=== PATIENT | male | born 1995 | race Caucasian/White ===

== ENCOUNTER 2022-09-21 09:11 | Emergency (ER) | payer BC, SELFPAY ==
[2022-09-21 09:11] VITALS: BP 152/82; PULSE 98; RESP 14; TEMP 36.4; O2SAT 100; BMI 23.5
--- NOTE | 2022-09-21 09:54 | CT_ITS ---
INDICATION: dissection study, back pain hx of Marfan''s EXAMINATION: CTA CHEST, ABDOMEN AND PELVIS WITH CONTRAST - TECHNIQUE: A CTA of the chest, abdomen, and pelvis is obtained with sagittal and coronal reconstructed MIP views. Three-dimensional surface rendered sequence of the thoracic and abdominal aorta was obtained. A radiation dose optimization technique was used for this scan. mL of Isovue-[id number]. Oral contrast: None. COMPARISON: None. FINDINGS: CT CHEST: THORACIC AORTA: No atheromatous disease, no aneurysmal changes or dissection. The ascending thoracic aorta measures 3.1 x 3.1 cm and the descending thoracic aorta measures 2.1 x 2.0 cm. ABDOMINAL AORTA: No aneurysm or dissection. No significant atheromatous disease. The iliac arteries are unremarkable. LUNGS: The lungs are well-expanded without acute or chronic changes. No effusions or pneumothorax. MEDIASTINUM: The thyroid gland is normal. No mediastinal or hilar adenopathy. HEART: Heart is normal size. No pericardial effusion. No coronary artery calcifications. CT ABDOMEN AND PELVIS: LIVER: The liver enhances homogeneously. Within the dome of the liver there are two well-circumscribed round low attenuation foci measuring up to 1.3 cm within the left hepatic lobe and 0.9 cm within the right hepatic lobe. GALLBLADDER: The common bile duct is normal. Normal gallbladder. SPLEEN: Normal. PANCREAS: No masses or inflammation. ADRENAL GLANDS: Normal. KIDNEYS AND URETERS: The kidneys both enhance appropriately. There are normal size and shape. No hydronephrosis or nephrolithiasis. No renal masses or cysts. STOMACH: Normal. SMALL BOWEL: No abnormal distention of the small bowel. MESENTERY: No mesenteric inflammation. No ascites. COLON: There are diverticula arising from the sigmoid colon. The colon otherwise is normal. There is a large fatty ileocecal valve. APPENDIX: The appendix is visualized and normal. IVC: Normal. RETROPERITONEUM: No retroperitoneal lymphadenopathy. PELVIC STRUCTURES: Normal bladder. SOFT TISSUES ABDOMEN: The anterior abdominal wall is normal. SOFT TISSUE CHEST: The extrathoracic soft tissues are normal. BONES: No fractures or significant degenerative disease. CT/CTA Chst, Abd, Pel W and/or WO IMPRESSION: No acute cardiopulmonary or intra-abdominal process. Electronically Signed: Rylee Cowart MD at 10:57 EST ,
--- NOTE | 2022-09-21 09:54 | CT_ITS ---
STUDY: CT LUMBAR SPINE WITHOUT CONTRAST REASON FOR EXAM: Male, 27 years old. Pain, midline, no trauma RADIATION DOSAGE (If Supplied By Facility): CTDIvol = ( 13.33 ) mGy, DLP = ( 1442.25 ) mGycm TECHNIQUE: The patient was scanned in a multi detector CT scanner. High resolution transaxial imaging was performed. Images were obtained from T12 to L1. Sagittal and coronal images were reconstructed. Individualized dose optimization techniques were used for this CT. COMPARISON: Radiograph dated 12/09/2012 FINDINGS: Normal lumbar lordosis. There is a mild dextroscoliosis of the lumbar spine. Normal vertebrae of the lumbar spine. L1-2: Normal endplates. Normal disc height and morphology. Normal bilateral facet joints. Normal central canal and bilateral lateral recesses. Normal bilateral intervertebral neural foramina. L2-3: Normal endplates. Normal disc height and morphology. Normal bilateral facet joints. Normal central canal and bilateral lateral recesses. Normal bilateral intervertebral neural foramina. L3-4: Normal endplates. Normal disc height and morphology. Normal bilateral facet joints. Normal central canal and bilateral lateral recesses. Normal bilateral intervertebral neural foramina. L4-5: Normal endplates. Normal disc height and morphology. Normal bilateral facet joints. Normal central canal and bilateral lateral recesses. Normal bilateral intervertebral neural foramina. L5-S1: Normal endplates. Normal disc height and morphology. Normal bilateral facet joints. Normal central canal and bilateral lateral recesses. Normal bilateral intervertebral neural foramina. There is a separate dedicated CT report of the abdomen and pelvis. CT/Spine Lumbar without Contrast IMPRESSION: Dextroscoliosis. Electronically Signed: Rylee Cowart MD at 11:01 EST ,
[2022-09-21 10:28] LABS: Absolute Lymphocyte Count 2.96 X10^3/uL (0.83-4.51); Absolute Neutrophil Count 3.8 X10^3/uL (2.0-7.7); Basophil% 1.3 % (0-1); Eosinophil# 0.45 X10^3/uL; Eosinophils% 5.7 % (0-5); Hematocrit 44.2 % (40-54); Hemoglobin 14.9 g/dL (13.0-16.5); Lymphocyte # 2.96 X10^3/ul (0.83-4.51); Lymphocyte % 37.6 % (19-41); Mean Corp Hgb Conc 33.7 g/dL (32-36); Mean Corpuscular Hgb 30.1 pg (27.0-32.0); Mean Corpuscular Volume 89.3 fL (80-94); Mean Platelet Vol. 9.2 fl (6.2-12.0); Monocyte% 7.6 % (0-10); NRBC Flagged by Analyzer 0 % (0-5); Neutrophil # 3.75 X10^3/uL (2.7-7.7); Neutrophil % 47.5 % (47-70); Platelet Count 278 K/mm3 (150-450); RBC Distribution Width CV 11.3 % (11.6-14.6); RBC Distribution Width SD 36.4 fl (35.1-43.9); Red Blood Count 4.95 M/mm3 (4.6-6.2); White Blood Count 7.9 K/mm3 (4.4-11.0)
[2022-09-21] MEDS: morphine 8 MG/ML Syringe 6 MG IV (10:40)
[2022-09-21 10:46] LABS: ALB/GLOB Ratio 1.2 RATIO (0.9-2.4); AST(SGOT) 12 U/L (15-37); Alanine Aminotransfer ALT/SGPT 27 U/L (16-61); Albumin, Serum 3.8 g/dL (3.2-5.0); Alkaline Phosphatase 56 U/L (45-117); Anion Gap 5 (5-15); BUN 14 mg/dL (7-18); BUN/Creat Ratio 16.3 RATIO (10-20); Calcium,Total 9.1 mg/dL (8.5-10.1); Chloride 109 mmol/L (98-107); Creatinine, Serum 0.86 mg/dL (0.70-1.30); EST Glomerular Filtration Rate 113 mL/min (>60); Est Glom Filt Rate - Afr Amer 136 mL/min (>60); Estimated Creatinine Clearance 169.48 ml/min; Globulin 3.3 g/dL (2.2-4.2); Glucose 83 mg/dL (74-106); Potassium 3.5 mmol/L (3.5-5.1); Protein, Total 7.1 g/dL (6.4-8.2); Sodium Level 143 mmol/L (136-145)
--- NOTE | 2022-09-21 12:51 | EDS_ITS ---
HPI History of Present Illness Chief Complaint: Back Informant: patient Narrative Narrative: Patient is a 27-year-old male with history of Marfan's syndrome as well as hyperlipidemia and aortic ectasia presenting with worsening back pain. He is progressively worsening back pain over the past 1 and a 1/2 months. Patient states it is shooting and goes down his bilateral legs. It is on both sides of the middle of his back but seems to be worse on the left. Initially started on the right. He states he does get some tingling in his feet. Denies any falls or injuries. Notes he does work third shift and has to do a lot of standing. States the pain is very intense. Denies any bowel or bladder incontinence. Denies any saddle anesthesia. Denies any fever or chills. Initially saw his primary care doctor today he was worried about decreased strength in his legs and sent him to the ER for further evaluation. [facility] Medical History (Updated 09/21/22 @ 12:[address] Lauren Patel DO) Aortic dilatation COVID-19 virus detected (11/13/20) Hyperlipidemia Marfan syndrome Talipes cavus Home Medications losartan 25 mg tablet 25 mg PO DAILY #90 tabs 01/01/21 [Rx Last Taken Unknown] oxycodone-acetaminophen 5 mg-325 mg tablet (Percocet) 1 tab PO Q6H PRN pain 3 days #12 tabs 09/21/22 [Rx Last Taken Unknown] prednisone 20 mg tablet 40 mg PO DAILY #8 tabs 09/21/22 [Rx Last Taken Unknown] Allergy/AdvReac Type Severity Reaction Status Date / Time No Known Allergies Allergy Verified 09/21/22 09:13 Family History Mother Marfan syndrome Asthma Father Glaucoma Sister Marfan syndrome Grandfather , Age 48 Marfan syndrome Sudden cardiac Grandmother Diabetes Surgical History History of eye surgery (~2009) Social History Smoking Status: Former smoker how long ago did patient quit smokin alcohol intake: never substance use type: does not use ROS ROS ED Constitutional Constitutional ED: Denies chills or fever(s) Eyes Eyes: Denies change in vision ENT ENT ED: Denies rhinorrhea Cardiovascular Cardiovascular: Denies chest pain or palpitations Respiratory/Chest Respiratory/Chest: Denies dyspnea or dyspnea on exertion Gastrointestinal Gastrointestinal: Denies abdominal pain, constipation or diarrhea Genitourinary Genitourinary ED: Denies dysuria, hematuria or urinary frequency Musculoskeletal Musculoskeletal: Reports back pain; Denies myalgias Integumentary Denies rash Neurologic Neurologic: Reports paresthesias RLE and LLE and weakness; Denies headache(s) Psychiatric Psychiatric: Denies anxiety or depression Hematologic/Lymphatic Hematologic/Lymphatic: Denies easy bleeding or easy bruising EXAM Physical Exam Const Vital Signs: 09/21/22 09:11 09/21/22 13:08 Temperature 97.5 F L Temperature Source Temporal Pulse Rate 98 84 Respiratory Rate 14 18 Blood Pressure 152/82 H 115/75 Blood Pressure Mean 105 Pulse Ox 100 Oxygen Delivery Method Room Air Positive well nourished and well developed Constitutional Narrative: Uncomfortable appearing, tall General Appearance ED: well developed and NAD HEENT Reports moist mucous membranes Eyes PERRL and EOMs intact bilaterally Neck supple and no JVD Neck Narrative: No meningeal signs Resp normal respiratory effort and clear to auscultation bilaterally Cardio regular rate, regular rhythm and no murmurs GI normal to inspection, nondistended, normoactive bowel sounds and non-tender GI Narrative: No pulsatile mass Back/Spine Back/Spine Narrative: Decreased range of motion of the lumbar spine. Patient has midline tenderness palpation around L4 as well as bilateral sacroiliac joints. Positive bilateral straight leg test. Lumbar Spine / Lower Back: ROM limited Extremity normal to inspection Extremity Narrative: 2+ left pedal pulse, 1+ right pedal pulse Neuro oriented x3 and no sensory deficits noted Neuro Narrative: Sensation intact in the lower extremities. Motor Exam: strength 5/5 throughout Deep Tendon Reflexes: Rt Patellar (L4): 2+ and Lt Patellar (L4): 2+ Deep Tendon Reflexes Back: Rt Patellar (L4): 2+ and Lt Patellar (L4): 2+ Plantar Reflex: Downgoing: bilateral Psych mental status grossly normal Skin no rashes or lesions noted and no wounds MDM MDM MDM Narrative Medical decision making narrative: Patient is evaluated for worsening low back pain. On exam is consistent with sciatica however he does have midline tenderness. His pulses decreased in his right foot he has a history of Marfan's. Differential also includes aortic dissection. Patient's vital signs are significant for mild hypertension upon arrival however that improves with better pain control. CT of the chest abdomen pelvis obtained as well as lumbar spine recons. The patient is extra scoliosis but no other acute process. Lab work largely unremarkable. No signs of dissection or other acute intra-abdominal pathology. Patient does not have any findings consistent with cauda equina syndrome. Post void bladder scan in the ER shows less than 20 cc of urine. Patient is given IV morphine in the ER with improvement of symptoms. He is started on a steroid burst and will be discharged to follow-up with spine. Again I suspect his pain is related to sciatica. He has a normal neurologic exam and I do not appreciate any weakness of his lower extremities. He has normal reflexes and normal Babinski sign. Low suspicion for GBS or transverse myelitis. Patient is given follow-up with spine as well as a short course of pain medication. Patient verbalizes agreement nursing with this plan. He states he has to drive home so is not given any further pain medicine in the ER. Lab Data Labs: Laboratory Results - last 24 hr 09/21/22 09/21/22 10:11 10:11 WBC 7.9 RBC 4.95 Hgb 14.9 Hct 44.2 MCV 89.3 MCH 30.1 MCHC 33.7 RDW Std Deviation 36.4 RDW Coeff of [place] 11.3 L Plt Count 278 MPV 9.2 Immature Gran % (Auto) 0.300 Neut % (Auto) 47.5 Lymph % (Auto) 37.6 [place] % (Auto) 7.6 Eos % (Auto) 5.7 H Baso % (Auto) 1.3 H Absolute Neuts (auto) 3.8 Absolute Lymphs (auto) 2.96 Nucleated RBC % 0 Sodium 143 Potassium 3.5 Chloride 109 H Carbon Dioxide 29.0 Anion Gap 5 BUN 14 Creatinine 0.86 Estim Creat Clear Calc 169.48 Est GFR (MDRD) Af Amer 136 Est GFR (MDRD) Non-Af 113 BUN/Creatinine Ratio 16.3 Glucose 83 Calcium 9.1 Total Bilirubin 0.90 AST 12 L ALT 27 Alkaline Phosphatase 56 Total Protein 7.1 Albumin 3.8 Globulin 3.3 Albumin/Globulin Ratio 1.2 Radiography Diagnostic Testing: Clinical Impression(s) from Imaging Studies Chest/Abdomen/Pelvis CTA 09/21/22 09:54 IMPRESSION: No acute cardiopulmonary or intra-abdominal process. Electronically Signed: Rylee Cowart MD at 10:57 EST , Lumbar Spine CT 09/21/22 09:54 IMPRESSION: Dextroscoliosis. Electronically Signed: Rylee Cowart MD at 11:01 EST , Discharge Plan Triage Chief Complaint: Back ED Provider: Lauren Patel Dx/Rx/DC Orders Clinical Impression: Acute bilateral low back pain with bilateral sciatica, Marfan syndrome Instructions: ED Back Pain (Acute or Chronic), ED Sciatica Prescriptions: New prednisone 20 mg tablet 40 mg PO DAILY Qty: 8 0RF oxycodone-acetaminophen [Percocet] 5-325 mg tablet 1 tab PO Q6H PRN (Reason: pain) 3 Days Qty: 12 0RF No Action losartan 25 mg tablet 25 mg PO DAILY Qty: 90 3RF Stand Alone Forms: ED Work / School Excuse Primary Care Provider: Flavia French Referrals: Flavia French MD [Primary Care Provider] - Momo Lombardi DO [Med Staff - Active Staff] - As soon as possible Activity Restrictions/Additional Instructions: Recommend wear the back brace at work. I suspect you have sciatica. Return if you develop urinary or stool incontinence, the pain becomes more severe or you have difficulty walking. Disposition Disposition: Home, Self Care Discharge Date/Time: 09/21/22 13:15
[2022-09-21] MEDS: predniSONE 20 MG Tablet 60 MG PO (13:07)
[2022-09-21 13:08] VITALS: BP 115/75; PULSE 84; RESP 18
== END 2022-09-21 13:15 | disposition home or self-care (01) ==
PROVIDERS: Emergency Provider Emergency Medicine; PCP Internal Medicine; Visit Provider Emergency Medicine
DX: M54.41 Lumbago with sciatica, right side (principal); M54.42 Lumbago with sciatica, left side; Q87.40 Marfan syndrome, unspecified; E78.5 Hyperlipidemia, unspecified; Z87.891 Personal history of nicotine dependence; I10 Essential (primary) hypertension
CPT/HCPCS: 71275; 72131; 74174; 80053; 85025; 96374; 99285; Q9967; A4216

== ENCOUNTER → 2022-10-06 | Outpatient (CLI) | payer BC, SELFPAY ==
--- NOTE | 2022-10-06 16:45 | MRI_ITS ---
EXAM: MR LUMBAR SPINE WITHOUT INTRAVENOUS CONTRAST CLINICAL INDICATION: SPINAL STENOSIS TECHNIQUE: Multiplanar and multisequence MR images of the lumbar spine without intravenous contrast. This report was created using [employer] report generation technology. COMPARISON: CT 09/21/2022. FINDINGS: VERTEBRAE: Unremarkable. Vertebral body heights are preserved. Normal vertebral bodies and posterior elements. Mild lumbar dextroscoliosis. No spondylolisthesis. There is preservation of the normal lumbar lordosis. SPINAL CORD: Unremarkable. Normal position and signal intensity of the conus medullaris. SOFT TISSUES: Unremarkable. DISCS/SPINAL CANAL/NEURAL FORAMINA: No demonstrated fracture. Vertebral bodies are normal in height. T12-L1: Normal disc height and morphology. Normal bilateral facet joints. Normal central canal. Normal bilateral lateral recesses. Normal intervertebral neural foramina. L1-2: Normal disc height and morphology. Normal bilateral facet joints. Normal central canal. Normal bilateral lateral recesses. Normal intervertebral neural foramina. L2-3: Normal disc height and morphology. Normal bilateral facet joints. Normal central canal. Normal bilateral lateral recesses. Normal intervertebral neural foramina. L3-4: Normal disc height and morphology. Normal bilateral facet joints. Normal central canal. Normal bilateral lateral recesses. Mild right foraminal encroachment due to spurring. L4-5: Normal disc height and morphology. Mild, noncompressive spondylotic bar. Normal bilateral facet joints. Normal central canal. Normal bilateral lateral recesses. Normal intervertebral neural foramina. L5-S1: Normal disc height and morphology. Normal bilateral facet joints. Normal central canal. Normal bilateral lateral recesses. Normal intervertebral neural foramina. MRI/Spine Lumbar (Routine) IMPRESSION: No compressive disc disease, canal or high-grade foraminal stenosis. Electronically Signed: Majo Littlejohn MD at 20:29 EST Reading Location ID and State: [id number] / Tel , Service support ,
== END | disposition home or self-care (01) ==
LOC: MRI 16:16
PROVIDERS: PCP Internal Medicine; Visit Provider Orthopaedic Surgery
DX: M48.061 Spinal stenosis, lumbar region without neurogenic claudication (principal); Q87.43 Marfan syndrome with skeletal manifestation; M47.26 Other spondylosis with radiculopathy, lumbar region
CPT/HCPCS: 72148

== ENCOUNTER 2022-10-09 18:29 | Emergency (ER) | payer BC, SELFPAY ==
[2022-10-09 18:30] VITALS: BP 138/96; PULSE 97; RESP 16; TEMP 36.9; O2SAT 100; BMI 23.3
--- NOTE | 2022-10-09 19:10 | EDS_ITS ---
HPI History of Present Illness Chief Complaint: Back Narrative Narrative: 27-year-old male presenting with back pain. He states it starts in his back and radiates down both of his legs. This is not a new problem. He was seen in the ER on 1113 and had images. He followed up with his primary care physician outpatient and was referred to Dr. Lombardi. He had an MRI done on the of the lumbar spine which was normal. He reports that he has had some intermittent daily numbness in his rectum and in his penis. He denies any new trauma. He states has had the symptoms for over a week. He saw Dr. Lombardi today and they went over the results of the MRI and he was told this was essentially normal. He states that Dr. Lombardi thought he maybe had some disc bulging and wanted to refer him for injections. They told him that as long as he is not urinating or defecating in his pants he did not need to be concerned. He called his primary care physician today who went over the MRI and stated that she did not see anything on the MRI and referred him back to the emergency room for repeat evaluation. He has not been urinating or defecating his pants. He does complain of some numbness and tingling around his penis and his rectum but this is not a new issue. [facility] Medical History Aortic dilatation COVID-19 virus detected (11/13/20) Hyperlipidemia Marfan syndrome [place] cavus Home Medications losartan 25 mg tablet 25 mg PO DAILY #90 tabs 01/01/21 [Rx Last Taken Unknown] oxycodone-acetaminophen 5 mg-325 mg tablet (Percocet) 1 tab PO Q6H PRN pain 3 days #12 tabs 09/21/22 [Rx Last Taken Unknown] prednisone 20 mg tablet 40 mg PO DAILY #8 tabs 09/21/22 [Rx Last Taken Unknown] Allergy/AdvReac Type Severity Reaction Status Date / Time No Known Allergies Allergy Verified 10/09/22 18:29 Family History Mother Marfan syndrome Asthma Father Glaucoma Sister Marfan syndrome Grandfather , Age 48 Marfan syndrome Sudden cardiac Grandmother Diabetes Surgical History History of eye surgery (~2009) Social History Smoking Status: Former smoker how long ago did patient quit smokin alcohol intake: never substance use type: does not use ROS ROS ED Constitutional Constitutional ED: Denies chills or fever(s) Eyes Eyes: Denies change in vision or diplopia ENT ENT ED: Denies rhinorrhea or sore throat Cardiovascular Cardiovascular: Denies chest pain or palpitations Respiratory/Chest Respiratory/Chest: Denies dyspnea or dyspnea on exertion Gastrointestinal Gastrointestinal: Denies abdominal pain, constipation, nausea or vomiting Genitourinary Genitourinary ED: Denies dysuria Musculoskeletal Musculoskeletal: Reports back pain Integumentary Denies abscess Neurologic Neurologic: Denies headache(s) or paresthesias Psychiatric Psychiatric: Denies anxiety or depression EXAM Physical Exam Const Vital Signs: 10/09/22 18:30 Temperature 98.5 F Temperature Source Temporal Pulse Rate 97 Respiratory Rate 16 Blood Pressure 138/96 H Blood Pressure Mean 110 Pulse Ox 100 Oxygen Delivery Method Room Air Positive well nourished General Appearance ED: NAD; Negative for pallor HEENT Reports moist mucous membranes Eyes PERRL and EOMs intact bilaterally Cardio regular rate and regular rhythm GI normal to inspection, nondistended, normoactive bowel sounds GI Narrative: Good rectal tone. Rectal sensation intact. Palpation: Negative for tender, guarding or hepatomegaly Narrative: Focal area of decreased sensation on the base of the left side of the shaft of the penis. No obvious redness, swelling. Testicles are normal. Extremity normal to inspection and no clubbing, cyanosis or edema Neuro oriented x3 and no sensory deficits noted Sensorium / Orientation: alert Psych mental status grossly normal Skin no rashes or lesions noted and no wounds General Skin Exam: Negative for jaundice or pallor MDM MDM MDM Narrative Medical decision making narrative: Patient seen and evaluated for back pain. What he is describing is similar to what he had when he was seen in the emergency room the first time. He is already had follow-up with Dr. Lombardi. He had an MRI done about 3 days ago which was normal. He is on prednisone and Percocet. When he called his primary care provider she referred him back to the emergency room. Although he is having some difficulty with urination he is able to void. He is able to have bowel movements. He has good rectal tone on examination. He has a little bit of numbness at the base of the left side of his penis but no other numbness or tingling. Testicles are normal. Bladder scanned him initially and he had 300 cc in his bladder. Since that time has been able to void. His urinalysis is negative. CBC and BMP are unremarkable. I spoke with Dr. Lombardi who stated that this is not a surgical thing. He does not believe it is cauda equina syndrome. I recommended that he follow-up with his primary care provider. He is amenable to this plan. Impression: 1. Back pain 2. Paresthesias Lab Data Labs: Laboratory Results - last 24 hr 10/09/22 10/09/22 10/09/22 20:13 20:13 20:29 WBC 9.7 RBC 5.08 Hgb 15.8 Hct 44.7 MCV 88.0 MCH 31.1 MCHC 35.3 RDW Std Deviation 35.2 RDW Coeff of [place] 10.9 L Plt Count 254 MPV 8.8 Immature Gran % (Auto) 0.200 Neut % (Auto) 59.2 Lymph % (Auto) 29.2 [place] % (Auto) 6.1 Eos % (Auto) 4.2 Baso % (Auto) 1.1 H Absolute Neuts (auto) 5.7 Absolute Lymphs (auto) 2.82 Nucleated RBC % 0 Sodium 137 Potassium 4.0 Chloride 105 Carbon Dioxide 27.0 Anion Gap 5 BUN 15 Creatinine 0.94 Estim Creat Clear Calc 155.06 Est GFR (MDRD) Af Amer 123 Est GFR (MDRD) Non-Af 102 BUN/Creatinine Ratio 16.0 Glucose 99 Calcium 10.0 Urine Color Yellow Urine Clarity Clear Urine pH 6.0 Ur Specific [place] 1.015 Urine Protein Negative Urine Glucose (UA) Normal Urine Ketones Negative Urine Occult Blood Negative Urine Nitrite Negative Urine Bilirubin Negative Urine Urobilinogen Normal Ur Leukocyte Esterase Negative Urine RBC 0 SEEN Urine WBC 0 SEEN Ur Squamous Epith Cells 0 SEEN Urine Bacteria 0 SEEN Urine Mucus 0 SEEN Discharge Plan Triage Chief Complaint: Back ED Provider: Elbert Resendez Dx/Rx/DC Orders Prescriptions: No Action losartan 25 mg tablet 25 mg PO DAILY Qty: 90 3RF prednisone 20 mg tablet 40 mg PO DAILY Qty: 8 0RF oxycodone-acetaminophen [Percocet] 5-325 mg tablet 1 tab PO Q6H PRN (Reason: pain) 3 Days Qty: 12 0RF Primary Care Provider: Flavia French Referrals: Flavia French MD [Primary Care Provider] -
[2022-10-09 20:21] LABS: Absolute Lymphocyte Count 2.82 X10^3/uL (0.83-4.51); Absolute Neutrophil Count 5.7 X10^3/uL (2.0-7.7); Basophil# 0.11 X10^3/uL; Basophil% 1.1 % (0-1); Eosinophil# 0.41 X10^3/uL; Eosinophils% 4.2 % (0-5); Hematocrit 44.7 % (40-54); Hemoglobin 15.8 g/dL (13.0-16.5); Lymphocyte # 2.82 X10^3/ul (0.83-4.51); Lymphocyte % 29.2 % (19-41); Mean Corp Hgb Conc 35.3 g/dL (32-36); Mean Corpuscular Hgb 31.1 pg (27.0-32.0); Mean Platelet Vol. 8.8 fl (6.2-12.0); Monocyte# 0.59 X10^3/uL; Monocyte% 6.1 % (0-10); NRBC Flagged by Analyzer 0 % (0-5); Neutrophil # 5.72 X10^3/uL (2.7-7.7); Neutrophil % 59.2 % (47-70); Platelet Count 254 K/mm3 (150-450); RBC Distribution Width CV 10.9 % (11.6-14.6); RBC Distribution Width SD 35.2 fl (35.1-43.9); Red Blood Count 5.08 M/mm3 (4.6-6.2); White Blood Count 9.7 K/mm3 (4.4-11.0)
[2022-10-09 20:37] LABS: Anion Gap 5 (5-15); BUN 15 mg/dL (7-18); Chloride 105 mmol/L (98-107); Creatinine, Serum 0.94 mg/dL (0.70-1.30); EST Glomerular Filtration Rate 102 mL/min (>60); Est Glom Filt Rate - Afr Amer 123 mL/min (>60); Estimated Creatinine Clearance 155.06 ml/min; Glucose 99 mg/dL (74-106); Sodium Level 137 mmol/L (136-145)
[2022-10-09 20:41] LABS: Bacteria 0 SEEN /hpf (None Seen); Mucous, Urine 0 SEEN /hpf (<or=2+); Red Blood Cells-Urine 0 SEEN /hpf (0-5); Squamous Epithelial Cells - UA 0 SEEN /hpf (0-5); White Blood Cells 0 SEEN /hpf (0-5)
[2022-10-09 20:48] LABS: Color, Urine Yellow (Yellow); Glucose, Dipstick Normal (Normal); Ketone-Dipstick Negative (Negative); Leukocyte Esterase-Dipstick Negative /ul (Negative); Nitrite-Dipstick Negative (Negative); Occult Blood-Urine Negative /ul (Negative); Protein-Dipstick Negative (Negative); Specific Gravity, Urine 1.015 (1.002-1.030); Urine Bilirubin Dipstick Negative (Negative); Urine Clarity Clear (Clear); Urine Urobilinogen Normal (Normal)
[2022-10-09 21:37] VITALS: RESP 16
== END 2022-10-09 21:37 | disposition home or self-care (01) ==
PROVIDERS: Emergency Provider Student in an Organized Health Care Education/Training Program; PCP Internal Medicine; Visit Provider Student in an Organized Health Care Education/Training Program
DX: M54.9 Dorsalgia, unspecified (principal); E78.5 Hyperlipidemia, unspecified; R20.2 Paresthesia of skin; Z87.891 Personal history of nicotine dependence; Z86.16 Personal history of COVID-19; Q87.40 Marfan syndrome, unspecified
CPT/HCPCS: 80048; 81001; 85025; 99283; A4216

== ENCOUNTER → 2022-10-14 | Outpatient (CLI) | payer BC, SELFPAY ==
[2022-10-14 12:57] LABS: Bacteria 0 SEEN /hpf (None Seen); Mucous, Urine 0 SEEN /hpf (<or=2+); Red Blood Cells-Urine 0 SEEN /hpf (0-5); Squamous Epithelial Cells - UA 0 SEEN /hpf (0-5); White Blood Cells 0 SEEN /hpf (0-5)
[2022-10-14 13:01] LABS: Color, Urine Yellow (Yellow); Glucose, Dipstick Normal (Normal); Ketone-Dipstick 50 mg/dl (Negative); Leukocyte Esterase-Dipstick Negative /ul (Negative); Nitrite-Dipstick Negative (Negative); Occult Blood-Urine Negative /ul (Negative); Protein-Dipstick Negative (Negative); Urine Bilirubin Dipstick Negative (Negative); Urine Clarity Clear (Clear); Urine Urobilinogen Normal (Normal)
[2022-10-14 13:30] LABS: Amylase 42 U/L (25-115); Lipase 144 U/L (73-393)
== END | disposition home or self-care (01) ==
LOC: LABSPEC 12:50
PROVIDERS: PCP Internal Medicine; Visit Provider Nurse Practitioner
DX: N50.812 Left testicular pain (principal); R34 Anuria and oliguria; R10.32 Left lower quadrant pain; R68.83 Chills (without fever); R11.0 Nausea; R10.817 Generalized abdominal tenderness
CPT/HCPCS: 81001; 82150; 83690; 87086

== ENCOUNTER 2022-10-21 08:58 | Outpatient (RCR) | payer BC, SELFPAY ==
--- NOTE | 2022-10-22 13:41 | HP.FCE ---
Floor (Occasional 1-33% of Day): NA Floor (Frequent 34-66% of Day): NA Floor (Constant 67-100% of Day): NA Floor PDL: No Ability Knee (Occasional 1-33% of Day): 15# Knee (Frequent 34-66% of Day): NA Knee (Constant 67-100% of Day): NA Knee PDL: Sedentary-Light Waist (Occasional 1-33% of Day): 15# Waist (Frequent 34-66% of Day): NA Waist (Constant 67-100% of Day): NA Waist PDL: Sedentary-Light Shoulder (Occasional 1-33% of Day): 15# Shoulder (Frequent 34-66% of Day): NA Shoulder (Constant 67-100% of Day): NA Shoulder PDL: Sedentary-Light Overhead (Occasional 1-33% of Day): NA Overhead (Frequent 34-66% of Day): NA Overhead (Constant 67-100% of Day): NA Overhead PDL: No Ability Comments: pt nauseated during session. noted shaking with attempts to lift. pt releasing box lifts due to pain. reported pain 9/10. Due to pain pts is limited to safety perform lifting. PHYSICAL DEMAND LEVEL FOR Lifting at Knee, waist and shoulder levels is SEDENTARY-LIGHT. PHYSICAL DEMAND LEVEL for lifting from floor and overhead NO ABILITY Bending: No Ablility (0% of day) Comments: pt limited ROM - unable to perform (pain 9/10) Squatting: Occasional Ability (1-33% of day) Comments: with external support and increase time Kneeling: No Ablility (0% of day) Reaching out: Occasional Ability (1-33% of day) Reaching up: Occasional Ability (1-33% of day) Sitting: Occasional Ability (1-33% of day) Comments: with ability to shift body weight Walking: Occasional Ability (1-33% of day) Standing: Occasional Ability (1-33% of day) Comments: with shifting body weight Duration Sedentary Sedentary Light Light Light Medium Medium Medium Heavy Very Heavy Heavy Occasional (0-33% of day) Frequent (34-66% of day) Constant (67-100% of day) 10 # Negligible Negligible 15 # 8 # Negligible 20 # 10# Negli. 35 # 18 # 7 # 50 # 25 # 10 # 75 # 100 # >100 # 38 # 50 # >50 # 15 # 20 # >20 # Weight:: 90.265 kg Hand Dominance: Right Medical History Including Restrictions: pt states he was in good health until early when he started having back pain and left hip pain. pt states he has had MRI and X-Ray and CT scan. pt states he was told he did have some bulging disc and than went to pain mtg. had injections with no improvement. pt has had CT scan, blood work for autoimmune. pt did see Dr. Garcia and had one set of spine injections without success and feels more pain. pt states he has a palpation lump on left side with pain. pt reports frustration to symptoms but due to imaging no dx. of why. Diagnoses: Back pain. Leg Pain. Marfan syndrome. Aortic dilation. Hyperlipidemia. Talipes Cavus Symptoms: low back pain. left hip pain. left knee pain. nerve issues of tingling left foot. left thigh numbness. testicular pain. nausea. weight loss. vomiting. constipation Pain: Pt reporting pain 8/10 sharp shooting pain. pt has not taken any pain medication. Rubén pain scale 42/45. The MPQ is a self-report measure of pain studied with a number of diagnoses. The MPQ assesses both the quality and intensity of subjective pain. The MPQ. is composed of 78 words, of which respondents choose those that best. describe their experience of pain. Seven words are selected from the following. categories: dimension 1 to 10 (pain descriptors), three words; dimensions 11 to. 15 (affective components of pain), dimension 16 (evaluation of pain) one word,. and dimension 17 to 20 (miscellaneous) one word. Scores are tabulated by. summing values associated with each word; scores range from 0 (no pain) to. 78 (severe pain). Qualitative differences in pain may be reflected in respondent?s. word choice (Shantezack, 1975). Disability Index (back). 41/50. SCORE DISABILITY LEVEL INTERPRETATION. 0 - 4 No disability. 5 - 14 Mild disability. 15 - 24 Moderate disability. 25 - 34 Severe disability. 35 - 50 Completely disabled. references. ? Dary Rendon PB. ?The Oswestry Disability Index.? Spine 2000: 25(22):0582-7181. ? Malu GANDHI, Raya Lay, Citlaly YULY. ?The Oswestry Low Back Pain Questionnaire.? 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 Pt states he has worked there for 4 years. 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 pt is unsure what his lifting requirement is but feels its 50#. pt states he typically 40 hours a week. pt states his job requires standing, walking and lifting as well as bending. pt states he has been struggling with his job tasks due to increase in low back, left hip, and , testicular pain. pt states he is nauseated and vomits at time. Behavioral: pt was cooperative throughout assessment. pt emotional when tasks became painful reporting 9/10 pain. ADLS: Pt lives with and two children (4 years and 5 months) in a one story with basement. pt has two small entry steps. Pt states he has avoided going to the finished basement. pt has tub shower combination. pt states bathing and dressing is painful and he does need increase time to perform or have his help him. Pt drives short distances. is performing all cleaning, meal prep and laundry. Physical Examination: resting heart rate 88 ROM: pt demo UB ROM WNL. Pt demo with major limited Lumbar movement loss due to c/o of pain and demo of lumbar guarding (pt attempting perform forward at thoracic spine to get movement) back and hip pain 8/10. bilateral hip flexion 45* pt reports back and hip pain 8/10 with this movement. Bilateral knee ROM WNL. bilateral ankle ROM WNL Strength: peak force in pounds. right shoulder flexion 15# left 12# (with back pain). right triceps 22# left 13# ( with back pain). right biceps 24# left 22# ( with back pain). right hip flexion 17# left 12#(with back pain). right quad 18# left 12# (with pain). right hamstring 20# left 12# (with pain). pt was demo facially pain when performing this portion- holding breath and became nauseated. pt demo a left side weakness compared to right side Right Quality Control Systems Manager Strength Average: 103.33 Right Quality Control Systems Manager Strength Percentile: 25% Left Quality Control Systems Manager Strength Average: 76.66 Left Quality Control Systems Manager Strength Percentile: 8% Right Lateral Pinch Average: 14.66 Right Lateral Pinch Percentile: <10% Left Lateral Pinch Average: 8.00 Left Lateral Pinch Percentile: <10% Right Tripod Pinch Average: 19.33 Right Tripod Pinch Percentile: 10% Left Tripod Pinch Average: 10.66 Left Tripod Pinch Percentile: <10% Comments: pt demo with significate left biofuels plant operations engineer and pinch weakness compared to right Sensation: denies in fingers. states tingling in left foot and thigh Fine Motor: 9 hole peg. right 20sec. 10% for age group. left 23.81 <10% for age group Balance: pt demo LOB x 1 with correction Bending: pt demo limited forward flexion with AROM. when asked to perform pt demo a attempt but increase pain/. heart rate 118. pt became nauseas following this attempt to bend forward. due to limited ROM and pts c/o pain. pt unable to bend forward Squatting: pt demo the ability to squat in limited plane of motion with external support. 3x. pt pain 07/18. pt demo low occasional ability to squat in limited plan of motion with external support Kneeling: Unable Reaching out/up: pt demo the ability to reach out/up 3/3x, 10/10x. pt grimacing and holding breath followed with deep breathing. pt needed increase rest break prior to finishing 08/17. pts heart rate increased from 88 to 112 following performance. pt unable to reach up/out 10/10x rapidly. pt can reach up/out on occasional ability Walking: pt ambulates with straight leg antalgic gait pattern. short gait pattern and guarded hip and low back posturing. pt ambulated total distance of 600 feet during assessment. pt can ambulate on occasional ability Standing: pt completed standing at 4 min shifting wt. pt can stand on occasional ability Sitting: pt demo the ability to sit 15 min prior to shifting body weight and requested to stand. pt did return to sitting during assessment but unable to sit for greater than 15 min due to back and left hip, buttock pain. pt can sit on occasional ability with given opportunity to shift body weight. Climbing Stairs: unable Floor Lift: unable Knee Lift: pt demo ability to lift 15# maximally from this level with poor lifting mechanics. Waist Lift: pt demo ability to lift 15# maximally from this level with poor lifting mechanics. Shoulder Lift: pt demo ability to lift 15# maximally from this level with poor lifting mechanics. Overhead Lift: uanble Carrying: unable Comments: pt demo a very guarded posture with all movement. major lumbar movement loss. but pt attempting to compensate with thoracic spine flex. pt holding his breath with a number of tasks. heart rate at rest was 88 and when completing task increased to 118. pt did become nauseated during session. pt required increase rest breaks to decrease pain and get breathing under control. pt pain is limiting safe functional mobility at this time.
--- NOTE | 2022-10-22 13:41 | HP.OTFCE.D ---
FCE D/C Summary - Discharge LUCAS DERAS was seen for a one time visit for an FCE on 10/21/22 and is discharged.
== END 2022-10-21 19:00 | disposition home or self-care (01) ==
LOC: OT 08:58
PROVIDERS: PCP Internal Medicine; Referring Provider Anesthesiology Pain Medicine; Visit Provider Anesthesiology Pain Medicine
DX: M54.9 Dorsalgia, unspecified (principal); M79.606 Pain in leg, unspecified
CPT/HCPCS: 97750